=== PATIENT | male | born 1980 | race Caucasian/White ===

== ENCOUNTER 2025-07-18 12:10 | Emergency (ER) | payer OTHER ==
[~2025-07-18] VITALS: Ht 165.1 cm; Wt 80.9 kg
[2025-07-18 12:16] VITALS: BP 134/82; PULSE 75; TEMP 98.1; O2SAT 100
[2025-07-18] MEDS: ketorolac trometh 15mg/ml vial 15 MG/ML ML IM ONE (12:39)
--- NOTE | 2025-07-18 13:17 | Physician Documentation ---
History of Present Illness ~ Chief Complaint: Back Pain Stated Complaint: BACK PAIN Time Seen by MD: 13:00 HPI This is a 44-year-old male who presents to the emergency department reporting that he had bent over to pick something up and experienced sudden onset pain with spasm between his shoulder blades. He denies chills or fever, distal numbness or weakness, chest pain or shortness of breath. Medication Reconciliation Allergies: Coded Allergies: No Known Allergies (Unverified , 07/18/25) Scheduled Naproxen (Naproxen), 1 TAB PO Q12H Tizanidine Hcl (Zanaflex), 1 TAB PO HS Review of Systems ROS As stated above in the HPI, otherwise all systems are reviewed and negative. Physical Exam Physical Exam Vital Signs: Temperature: 98.1, Source: Temporal, Heart Rate: 75, Respiratory Rate: 16, BP: 134/82, Pulse Oximetry: 100, Weight: 80.900 Oxygen Flow Rate: 0 Physical Exam General: Alert, mild distress due to pain. HEENT: PERRL, EOMI, no injection, moist mucous membranes. Neck: Full range of motion. Respiratory: Lungs clear, no respiratory distress. Chest: No accessory muscle use. Cardiovascular: Regular rate and rhythm, no murmurs. Gastrointestinal: Soft, nontender, nondistended. Bowels sounds present. Extremities: Reduced/painful ROM to upper back. Neurologic: Oriented x4. Psychiatric: Normal mood and affect. Skin: Normal color, warm and dry. No edema, no ecchymosis. Progress Results/Orders Results/Orders Completed Orders - MARISELA VELIZ NP Ketorolac Trometh 15mg/Ml Vial (Toradol (07/18/25 12:35) Cyclobenzaprine Tablet (Flexeril Tablet) (07/18/25 12:35) Medications Received in ER Medications (Trade) Dose Ordered Sig/Ganesh Route PRN Reason Start Time Stop Time Status Last Admin Dose Admin (Toradol injection) 15 mg ONCE ONCE IM 07/18/25 12:35 07/18/25 12:36 DC 07/18/25 12:39 15 MG (Flexeril tablet) 10 mg ONCE ONCE PO 07/18/25 12:35 07/18/25 12:36 DC 07/18/25 12:39 10 MG Vital Signs 07/18/25 07/18/25 07/18/25 12:16 12:39 13:41 Temp 98.1 Pulse 75 Resp 16 16 16 B/P (MAP) 134/82 Pulse Ox 100 O2 Flow Rate 0 Medical Decision Making Additional information obtaine: N/A Findings No previous visits here. Patient good historian. Differential Dx:Considerations: Musculoskeletal pain, Pyelonephritis, Strain, Urinary obstruction, Urolithiasis, Ovarian torsion, Renal infarction, Urinary tract infection Departure Time of Disposition: 13:58 Disposition: 01 HOME / SELF CARE / HOMELESS Impression: Primary Impression: Strain of thoracic region Condition: Stable Discharge Instructions: Acute Back Pain, Adult Additional Instructions: Take the scribe medications as needed. Ice or heat, gentle stretching. Follow up with your primary care provider, return if worse. Departure Forms: Excuse form Work or School Excused From: Work Excuse beginning now through the following date: Jul 20, 2025 Referrals: NO PRIMARY CARE PROVIDER (PCP) Prescriptions Naproxen (Naproxen) 500 Mg Tablet 1 TAB PO Q12H, #20 TAB Prov: MARISELA VELIZ NP 07/18/25 Tizanidine Hcl (Zanaflex) 2 Mg Tablet 1 TAB PO HS for 10 Days, #10 TAB 0 Refills Prov: MARISELA VELIZ NP 07/18/25 Education Educated: Patient Educated regarding: diagnosis, treatment, prognosis, need for follow up Signature Scribe Signature: x Attestation: The note accurately reflects work and decisions made by me.Marisela Horner NP 07/18/25 13:16 MARISELA VELIZ NP Jul 18, 2025 13:17
[2025-07-18 13:41] VITALS: RESP 16
[2025-07-18] MEDS ORDERED: TIZA-189 PO (13:59)
[2025-07-18] MEDS ORDERED: NAPR-56 PO (14:00)
== END 2025-07-18 14:10 | disposition home or self-care (01) ==
LOC: ER 12:12
DX: S29.012A Strain of muscle and tendon of back wall of thorax, initial encounter (principal); Z79.899 Other long term (current) drug therapy; X50.1XXA Overexertion from prolonged static or awkward postures, initial encounter; Y93.89 Activity, other specified; Y92.89 Other specified places as the place of occurrence of the external cause; Y99.8 Other external cause status
CPT/HCPCS: 96372; 99283; J1885